=== PATIENT | male | born 1950 | race Caucasian/White ===

== ENCOUNTER 2019-07-10 05:13 | Day surgery (SDC) ==
--- NOTE | 2019-07-03 09:01 | EKG Report ---
Test Performed on : 07/03/2019 08:51:55 AM Test Reason : PRE-OP Blood Pressure : / mmHG Vent. Rate : 065 BPM Atrial Rate : 065 BPM P-R Int : 162 ms QRS Dur : 102 ms QT Int : 380 ms P-R-T Axes : 063 -02 059 degrees QTc Int : 395 ms Normal sinus rhythm. Possible Inferior infarct , age undetermined Abnormal ECG No previous ECGs available Confirmed by Kesha Block MD ([id number]) on 07/03/2019 4:15:25 PM
[2019-07-04 16:05] LABS: URINE SOURCE CLEAN CATCH
[2019-07-04 16:20] LABS: BILIRUBIN URINE NEGATIVE (NEGATIVE); BLOOD URINE NEGATIVE (NEGATIVE); COLOR YELLOW; GLUCOSE URINE NEGATIVE (NEGATIVE); KETONE URINE NEGATIVE (NEGATIVE); LEUKOCYTES URINE NEGATIVE (NEGATIVE); NITRITE URINE NEGATIVE (NEGATIVE); PH URINE 5.5; PROTEIN URINE TRACE mg/dL (NEGATIVE); SP GRAVITY URINE 1.027; TURBIDITY URINE CLEAR (CLEAR); UROBILINOGEN URINE NORMAL (NORMAL)
[2019-07-04 16:21] LABS: UR EPITHELIAL CELLS <10 /HPF (<10); URINE BACTERIA NEGATIVE /HPF; URINE RBC <10 /HPF (<10); URINE WBC <10 /HPF (<10)
[2019-07-04 16:23] LABS: HEMOGLOBIN A1C 5.7 % (4.8-6.0); INR 0.98; PROTIME 13.1 Seconds (11.0-16.0)
[2019-07-10] MEDS ORDERED: REGLAN ONE (05:40)
[2019-07-10] MEDS ORDERED: PEPCID ONE (05:40)
[2019-07-10] MEDS ORDERED: COLACE ONE (05:40)
[2019-07-10] MEDS ORDERED: LYRICA ONE (05:40)
[2019-07-10] MEDS ORDERED: LR 1,000 ML ONE (05:41)
[2019-07-10] MEDS ORDERED: CELEBREX ONE (05:41)
[2019-07-10] MEDS ORDERED: KEFZOL 1 GM/D5W 2 GM/100 ML IVPB ONE (05:41)
[2019-07-10] MEDS ORDERED: VERSED ONE ×2 (06:36→07:08)
[2019-07-10] MEDS ORDERED: DIPRIVAN 1% ONE ×3 (06:37→08:23)
[2019-07-10] MEDS ORDERED: FENTANYL ONE (06:37)
[2019-07-10] MEDS ORDERED: MARCAINE 0.25% PF ONE (06:40)
[2019-07-10] MEDS ORDERED: SODIUM CHLORIDE 0.9% ONE (06:40)
[2019-07-10] MEDS ORDERED: DURAMORPH ONE (06:40)
[2019-07-10] MEDS ORDERED: CYKLOKAPRON 1,000 MG/NS 1,000 MG/100 ML IVPB ONE ×2 (06:40→06:41)
[2019-07-10] MEDS ORDERED: VANCOMYCIN ONE (06:40)
[2019-07-10] MEDS ORDERED: EXPAREL 1.3% ONE (06:40)
[2019-07-10] MEDS ORDERED: TORADOL ONE (06:40)
[2019-07-10] MEDS ORDERED: NEOSPORIN G.U. IRRIGANT ONE (06:41)
[2019-07-10] MEDS ORDERED: EPHEDRINE ONE (07:48)
[2019-07-10] MEDS ORDERED: OFIRMEV 1000 MG/ISOTONIC SOLN 1,000 MG/100 ML BOTTLE ONE (07:50)
[2019-07-10] MEDS ORDERED: DECADRON ONE (07:50)
[2019-07-10] MEDS ORDERED: NS 1,000 ML ONE (08:09)
[2019-07-10 08:55] LABS: URINE SOURCE CATH
[2019-07-10 09:01] LABS: BILIRUBIN URINE NEGATIVE (NEGATIVE); BLOOD URINE NEGATIVE (NEGATIVE); COLOR YELLOW; GLUCOSE URINE NEGATIVE (NEGATIVE); KETONE URINE 10 mg/dL (NEGATIVE); LEUKOCYTES URINE NEGATIVE (NEGATIVE); NITRITE URINE NEGATIVE (NEGATIVE); PROTEIN URINE NEGATIVE (NEGATIVE); TURBIDITY URINE CLEAR (CLEAR); UROBILINOGEN URINE NORMAL (NORMAL)
[2019-07-10 09:04] LABS: UR EPITHELIAL CELLS <10 /HPF (<10); URINE BACTERIA NEGATIVE /HPF; URINE RBC <10 /HPF (<10); URINE WBC <10 /HPF (<10)
[2019-07-10] MEDS ORDERED: ZOFRAN ONE (09:07)
--- NOTE | 2019-07-10 10:21 | OPERATIVE NOTE ---
PROCEDURE DATE: 07/10/2019 PREOPERATIVE DIAGNOSIS: Left knee degenerative joint disease. POSTOPERATIVE DIAGNOSIS: Left knee degenerative joint disease. PROCEDURE PERFORMED: Left total knee arthroplasty using [facility] size 6 femoral component, size 7 tibial baseplate, a 14 mm articular insert, and a 35 mm patellar component. ANESTHESIA: Spinal. SURGEON: Arpan Gatica MD. RESTAURANT HOSTESS: Landon Contreras RN. COMPLICATIONS: None. BLOOD LOSS: Minimal. TOURNIQUET TIME: Approximately an hour. DESCRIPTION OF PROCEDURE: The patient was brought to the operative suite and placed in the supine position. After successful administration of spinal anesthesia, a well-padded tourniquet was placed on the left proximal thigh. The left lower extremity was prepped and draped in the usual sterile fashion. The leg was exsanguinated. Tourniquet was insufflated to 350 torr. A longitudinal incision was made beginning at the superior pole of the patella and extended distally. The tibia tuberosity was dissected sharply through the skin. Full-thickness skin flaps were elevated medially and laterally. A medial arthrotomy was then made. The medial capsule was elevated off the medial tibial plateau. The ACL, PCL, medial meniscus, lateral meniscus were excised. A drill was entered in the center of the distal femur. Intramedullary guide was placed. The distal cutting block was pinned into place. Distal cut was made with an oscillating saw. The marginal osteophytes were removed with a rongeur. Attention was directed to the tibia. A drill was entered in the center of the tibia. Intramedullary guide was placed. The line was checked with drop derrick referencing off the anterior cortex of the tibia and the second ray of the foot and taking 4 mm off the low side of the tibia, which in this case was medially. The tibial cutting block was pinned in place. The articular surface of the tibial plateau was removed with an oscillating saw. Extension gaps were checked and found to be tight medially. A medial release was performed and then it was found to be balanced at 14 mm. The flexion gap was at 23 mm to account for 9 mm of the posterior femoral condyle of the prosthesis. Once this was set, the rotation was set and it was found to be in line with the transepicondylar axis. The femur was sized to a size 6. Then the cutting block was pinned in place. The anterior cuts, chamfer cuts, and posterior condylar cuts were made with an oscillating saw. A box cutting block was pinned in place and a box cut was made with box osteotome and oscillating saw. Posterior condylar osteophytes were removed with a curved osteotome and rongeur. The attention was directed back to the tibia. The tibia was sized to a size 7. A size 7 guide was used for the fin punch. The tibial trial, femoral trial, and 14 mm articular insert were placed and taken through range of motion, found to have excellent alignment, balancing, and range of motion. Attention was directed to the patella. Then, 9 mm of the articular surface of the patella were removed with an oscillating saw. Patella sized to size 35. A size 35 guide was used to drill peg holes. The lateral facet was chamfered 30 to 45 degrees. Patella trial was placed, taken through a range of motion, and found to have excellent patella tracking. All trials were then removed. The knee was copiously irrigated, being certain all bone debris was removed. The tibial component, femoral component, and patellar component were cemented into place with excess cement being removed with a [place]. Once the cement had hardened, excess cement was again removed with an osteotome. The knee was again copiously irrigated and dried, being certain all bone and cement debris was removed. The trial articular insert was removed. The knee was copiously infiltrated with Exparel including posterior capsule, anterior capsule, anterior musculature, and subcutaneous tissue. The tourniquet was deflated. Hemostasis was obtained with electrocautery. The definitive 14 mm articular insert was locked into place. The knee was again copiously irrigated with normal saline containing irrigant and Vashe irrigation. The medial arthrotomy was closed with a combination of #1 Vicryl and 0 V-Loc suture. The skin edge was approximated with 2-0 Vicryl. Skin was closed with a Prineo dressing. The patient was again taken through a range of motion, found to have excellent range of motion, alignment, and balancing. A sterile dressing was applied. The patient tolerated the procedure well without complication. At the end the procedure, all counts were correct x2. The patient was transferred to the recovery room in stable condition. cc: Arpan Gatica MD
[2019-07-10] MEDS ORDERED: OXY IR PO PRN ×2 (10:45)
[2019-07-10] MEDS ORDERED: ZOFRAN ODT PO PRN (10:45)
[2019-07-10] MEDS ORDERED: MILK OF MAGNESIA PO PRN (10:45)
[2019-07-10] MEDS ORDERED: ZOFRAN IV PRN (10:45)
[2019-07-10] MEDS ORDERED: MORPHINE IV PRN ×3 (10:45)
[2019-07-10] MEDS: KEFZOL 2 GM/D5W 2 GM/50 ML IVPB IV SCH ×2 (15:37→23:31)
[2019-07-10] MEDS: ULTRAM PO SCH ×2 (15:38→21:24)
[2019-07-10] MEDS: TYLENOL PO SCH ×2 (15:38→21:24)
[2019-07-10] MEDS: INDOCIN PO SCH (17:51)
[2019-07-10] MEDS ORDERED: PEPCID PO SCH ×2 (18:00→21:00)
[2019-07-10] MEDS ORDERED: FLOMAX PO SCH ×2 (18:00→21:00)
[2019-07-10] MEDS ORDERED: CENTRUM SILVER PO SCH ×2 (18:00→21:00)
[2019-07-10] MEDS ORDERED: INDOCIN PO SCH (21:00)
[2019-07-10] MEDS: PERIDEX MT SCH (21:23)
[2019-07-10] MEDS: LYRICA PO SCH (21:24)
[2019-07-10] MEDS: NS 1,000 ML IV SCH (21:25)
[2019-07-10] MEDS: COLACE PO SCH (21:25)
[2019-07-11] MEDS: NS 1,000 ML IV SCH (00:11)
[2019-07-11] MEDS: ULTRAM PO SCH (05:35)
[2019-07-11] MEDS: TYLENOL PO SCH (05:35)
[2019-07-11 07:58] LABS: HEMATOCRIT 39.5 % (42.0-52.0); HEMOGLOBIN 13.1 g/dL (14.0-18.0)
[2019-07-11 08:20] VITALS: BP 133/89
[2019-07-11 08:36] LABS: AGAP 11; BUN 14 mg/dL (8-22); CALCIUM 8.4 mg/dL (8.8-10.2); CHLORIDE 103 mmol/L (98-107); COSMO 278; CREATININE 0.7 mg/dL (0.7-1.2); ESTIMATED GFR > 60; GLUCOSE 105 mg/dL (70-104); POTASSIUM 4.3 mmol/L (3.5-5.1); SODIUM 139 mmol/L (136-145); TCO2 25 mmol/L (25-35)
[2019-07-11] MEDS ORDERED: DECADRON IV ONE (09:00)
[2019-07-11] MEDS ORDERED: ASPIRIN PO SCH (09:00)
[2019-07-11] MEDS: COLACE PO SCH (09:19)
[2019-07-11] MEDS: INDOCIN PO SCH (09:19)
[2019-07-11] MEDS: PERIDEX MT SCH (09:20)
[2019-07-11] MEDS: LYRICA PO SCH (09:22)
--- NOTE | 2019-07-11 13:14 | DISCHARGE SUMMARY ---
ADMISSION DATE: 07/10/2019 DISCHARGE DATE: 07/11/2019 DISCHARGE DIAGNOSIS: Left knee degenerative joint disease status post left total knee arthroplasty. DISCHARGE MEDICATIONS: See discharge medication list. DISPOSITION: The patient discharged home with outpatient physical therapy. DISCHARGE INSTRUCTIONS: Instructed to return for any signs or symptoms of infection or deep venous thrombosis. FOLLOW-UP INSTRUCTIONS: Instructed return to see Dr. Gatica next . HOSPITAL COURSE: On the day of admission, patient underwent a left total knee arthroplasty. His postoperative course was unremarkable. At discharge, he is afebrile, tolerating a regular diet, ambulating well with physical therapy. His wound is clean, dry, intact without sign of infection. He is discharged home in stable condition. Instructed to follow up as described above. cc: Arpan Gatica MD
== END 2019-07-11 11:30 | disposition home or self-care (01) ==
LOC: OR 05:13 → 4N 05:13 → OR 07-11 11:30
PROVIDERS: ATTEND Orthopaedic Surgery